=== PATIENT | female | born 1950 ===

== ENCOUNTER 2022-07-09 05:10 | Day surgery (SDC) | payer OTHER ==
[~2022-07-09] VITALS: Ht 152.4 cm; Wt 67.1 kg
[~2022-07-09 05:10] MED LIST: COZAAR100 MG PO; GLIMEPIRIDE4 MG PO; HORIZANT300 MG; METFORMIN HCL500 MG PO; NORVAS PO; PROTONIX40 MG PO; VITAMIN D PO; ZETIA10 MG PO
== END 2022-07-09 13:20 | disposition home or self-care (01) ==
LOC: CIR.AMB 05:10
PROVIDERS: ATTEND Colon & Rectal Surgery
DX: R15.9 Full incontinence of feces (principal); Z20.822 Contact with and (suspected) exposure to COVID-19; Z91.013 Allergy to seafood; I10 Essential (primary) hypertension; J45.909 Unspecified asthma, uncomplicated; Z86.16 Personal history of COVID-19; Z85.3 Personal history of malignant neoplasm of breast; Z92.21 Personal history of antineoplastic chemotherapy
CPT/HCPCS: 64581; 95971; C1778